=== PATIENT | male | born 1990 | race Caucasian/White ===

== ENCOUNTER 2016-07-11 08:29 | Emergency (ER) | payer BC, OTHER ==
[~2016-07-11] VITALS: Ht 172.7 cm; Wt 128.1 kg
[2016-07-11 08:32] VITALS: TEMP 36.6; Ht 172.7 cm; Wt 128.1 kg
[2016-07-11] MEDS ORDERED: LSN20 PO (08:56)
--- NOTE | 2016-07-11 08:56 | EMERGENCY ROOM VISIT NOTE ---
History Report prepared by Han: Jayesh Damian Under the Supervision of: Dr. Triston Hemphill M.D. First contact with patient: 08:37 Chief Complaint: BACK PAIN Stated Complaint: LWR BACK PAIN-PAIN GOING DOWN TO GROIN/THIGHS History of Present Illness The patient is a 26 year old male who presents to the Emergency Room with complaints of constant lower back pain since last night. The pain is severe, and radiates to his groin area and left leg. He denies numbness in the groin area. He has not taken anything for pain. The patient notes that he urine was cloudy yesterday. He denies any urinary or bowel incontinence. He has never had pain quite like this before. The patient was not doing any heavy lifting at onset. He denies any recent trauma or injury. He denies any history of kidney stones. Source of History: patient Onset: last night Position: back (lower) Symptom Intensity: severe Timing: constant Associated Symptoms: + urinary symptoms (cloudy), No numbness Review of Systems See HPI for pertinent positives & negatives. A total of 10 systems reviewed and were otherwise negative. Past Medical & Surgical Medical Problems: (1) HTN (hypertension) Family History Hypertension Social History Smoking Status: Never Smoker Alcohol Use: occasionally Marital Status: Housing Status: lives with family Current/Historical Medications Scheduled Lisinopril (Lisinopril), 20 MG PO DAILY Scheduled PRN Oxycodone/Acetaminophen 5MG/325MG (Percocet 5MG/325MG), 1-2 TAB PO Q4H PRN for Pain Allergies Coded Allergies: [place]ut (Verified Allergy, Unknown, swelling, gi mdisturbance, 07/11/16) NO KNOWN DRUG ALLERGIES (Verified Allergy, Unknown, nonoe, 07/11/16) [place] (Verified Allergy, Unknown, swelling, gi disturbance, 07/11/16) Uncoded Allergies: MAYONNIASE (Allergy, Unknown, swelling,gi disturbance, 08/23/14) Physical Exam Vital Signs Date Time Temp Pulse Resp B/P Pulse Ox O2 Delivery O2 Flow Rate FiO2 07/11/16 10:44 61 18 141/68 94 07/11/16 10:01 64 18 141/68 95 Room Air 07/11/16 09:55 63 07/11/16 09:17 67 18 115/62 94 Room Air 07/11/16 08:32 36.6 80 20 199/111 95 Room Air Physical Exam GENERAL: Patient is a healthy-appearing well-nourished HEAD: Normocephalic atraumatic EYES: Ocular movements intact pupils equal and react to light OROPHARYNX mucous membranes are moist no exudates present no erythema or edema present NECK: Supple no nuchal rigidity CHEST: Good equal expansion LUNGS: Clear and equal to auscultation CARDIAC: Normal S1 and S2 ABDOMEN: Soft nontender no guarding BACK: No CVA tenderness EXTREMITIES: No pain upon palpation normal muscle strength in all groups no clubbing cyanosis or edema NEURO: Patient is following commands is answering questions appropriately. Alert and oriented x3 Cranial Nerves 2-12 grossly intact. Able to walk on heels and tip-toes, no saddle anesthesia, no loss of bowel or bladder control. Medical Decision & Procedures ER Provider Diagnostic Interpretation: CT results as stated below per my review and radiologist interpretation: ABDOMEN AND PELVIS CT WITHOUT CONTRAST CT DOSE: 1154.27 mGycm HISTORY: Flank pain Pt c/o left sided flank pain TECHNIQUE: Multiaxial CT images of the abdomen and pelvis were performed without the use of intravenous and oral contrast according to the standard department stone protocol. COMPARISON STUDY: None. FINDINGS: Lung bases are clear. Liver spleen and pancreas are unremarkable. Kidneys are negative for calcification or hydronephrosis. Bowel pattern is considered nonobstructive. An exit normal. Bladder is midline. IMPRESSION: No renal stones or hydronephrosis. Negative study of the abdomen and pelvis Electronically signed by: Samy Farris M.D. 07/11/2016 9:40 AM Dictated Date/Time: 07/11/2016 9:36 AM Laboratory Results 07/11/16 09:08 Red Blood Count 5.13, Mean Corpuscular Volume 82.5, Mean Corpuscular Hemoglobin 27.9, Mean Corpuscular Hemoglobin Concent 33.8, Mean Platelet Volume 9.2, Neutrophils (%) (Auto) 58.4, Lymphocytes (%) (Auto) 27.7, Monocytes (%) (Auto) 10.8, Eosinophils (%) (Auto) 2.7, Basophils (%) (Auto) 0.1, Neutrophils # (Auto ) 4.55, Lymphocytes # (Auto) 2.16, Monocytes # (Auto) 0.84, Eosinophils # (Auto ) 0.21, Basophils # (Auto) 0.01 07/11/16 09:08 Test 07/11/16 09:08 White Blood Count 7.79 K/uL (4.8-10.8) Red Blood Count 5.13 M/uL (4.7-6.1) Hemoglobin 14.3 g/dL (14.0-18.0) Hematocrit 42.3 % (42-52) Mean Corpuscular Volume 82.5 fL (80-100) Mean Corpuscular Hemoglobin 27.9 pg (25-34) Mean Corpuscular Hemoglobin Concent 33.8 g/dl (32-36) Platelet Count 236 K/uL (130-400) Mean Platelet Volume 9.2 fL (7.4-10.4) Neutrophils (%) (Auto) 58.4 % Lymphocytes (%) (Auto) 27.7 % Monocytes (%) (Auto) 10.8 % Eosinophils (%) (Auto) 2.7 % Basophils (%) (Auto) 0.1 % Neutrophils # (Auto) 4.55 K/uL (1.4-6.5) Lymphocytes # (Auto) 2.16 K/uL (1.2-3.4) Monocytes # (Auto) 0.84 K/uL (0.11-0.59) Eosinophils # (Auto) 0.21 K/uL (0-0.5) Basophils # (Auto) 0.01 K/uL (0-0.2) RDW Standard Deviation 38.7 fL (36.4-46.3) RDW Coefficient of Variation 12.8 % (11.5-14.5) Immature Granulocyte % (Auto) 0.3 % Immature Granulocyte # (Auto) 0.02 K/uL (0.00-0.02) Urine Color YELLOW Urine Appearance CLEAR (CLEAR) Urine pH 7.5 (4.5-7.5) Urine Specific [place] 1.007 (1.000-1.030) Urine Protein NEG (NEG) Urine Glucose (UA) NEG (NEG) Urine Ketones NEG (NEG) Urine Occult Blood NEG (NEG) Urine Nitrite NEG (NEG) Urine Bilirubin NEG (NEG) Urine Urobilinogen NEG (NEG) Urine Leukocyte Esterase NEG (NEG) Anion Gap 4.0 mmol/L (3-11) Est Creatinine Clear Calc Drug Dose 120.7 ml/min Estimated GFR () 95.5 Estimated GFR (Non- 82.4 BUN/Creatinine Ratio 11.8 (10-20) Calcium Level 9.0 mg/dl (8.5-10.1) Total Bilirubin 0.3 mg/dl (0.2-1) Direct Bilirubin < 0.1 mg/dl (0-0.2) Aspartate Amino Transf (AST/SGOT) 15 U/L (15-37) Alanine Aminotransferase (ALT/SGPT) 29 U/L (12-78) Alkaline Phosphatase 105 U/L (45-117) Total Protein 7.8 gm/dl (6.4-8.2) Albumin 3.9 gm/dl (3.4-5.0) Lipase 123 U/L (73-393) Labs reviewed by ED physician. Medications Administered Medications (Trade) Dose Ordered Sig/Epifanio Route Start Time Stop Time Status Last Admin Dose Admin Sodium Chloride (Nss 1000ml) 1,000 ml @ 999 mls/hr Q1H1M STAT IV 07/11/16 08:58 07/11/16 09:58 DC 07/11/16 09:12 999 MLS/HR Ketorolac Tromethamine (Toradol Inj) 30 mg NOW STAT IV 07/11/16 08:58 07/11/16 09:00 DC 07/11/16 09:12 30 MG Hydromorphone HCl (Dilaudid Inj) 1 mg NOW STAT IV 07/11/16 08:58 07/11/16 09:00 DC 07/11/16 09:13 1 MG Ondansetron HCl (Zofran Inj) 4 mg NOW STAT IV 07/11/16 08:58 07/11/16 09:00 DC 07/11/16 09:12 4 MG ED Course 0850: Past medical records reviewed. The patient was evaluated in room B9. A complete history and physical examination was performed. 0858: Zofran 4 mg IV, Dilaudid 1 mg IV, Toradol 30 mg IV, NSS 1000 ml @ 999 mls/ hr. 1030: Reassessed the patient. Discussed the findings with him. He verbalized understanding and agreement of the plan. The patient is ready for discharge. Medical Decision Differential diagnosis: Etiologies such as musculoskeletal, disc herniation, fracture, aortic disease, metastatic disease, cord compression, discitis, infection, renal colic, gastrointestinal, acute exacerbation of chronic back pain, sciatica, cauda equina, as well as others were entertained. This is a 26-year-old male who presents emergency department complaining of low back pain that radiates into his groin area and based on the patient's complaint of concerned about a kidney stone however the patient does not have an elevation in his white blood count has a normal renal profile has a normal liver profile has a normal lipase. In addition the patient does not appear to have any blood in his urine. CAT scan of the abdomen pelvis does not show any evidence of stone. An IV was established, the patient given normal saline bolus , Toradol, Dilaudid. Repeat examination revealed improvement patient's symptoms. I do believe that the patient as well as to be discharged home for follow-up with her primary care physician. Patient was in agreement with the treatment plan. Impression Primary Impression: Low back pain Scribe Attestation The scribe's documentation has been prepared under my direction and personally reviewed by me in its entirety. I confirm that the note above accurately reflects all work, treatment, procedures, and medical decision making performed by me. Departure Information Dispostion Home / Self-Care Prescriptions Oxycodone/Acetaminophen 5MG/325MG (PERCOCET 5MG/325MG) Tab 1-2 TAB PO Q4H Y for Pain, #14 TAB Prov: Trsiton Hemphill MD 07/11/16 Referrals Neftaly Flores M.D. (PCP) Forms HOME CARE DOCUMENTATION FORM, IMPORTANT VISIT INFORMATION, School Instructions, Work Instructions Patient Instructions Back Pain - [facility], ED Back Care Tips, Exercises Lower Back Rotation, Leg Low Back Pain Poss Causes, Low Back Pain Self Care, [facility] Additional Instructions Follow up with Dr Yang's office You received narcotic or benzodiazepene medication while in the emergency room today. Do not drive, operate heavy machinery, or drink alcohol under the influence of this medication. Take 600 mg Ibuprofen every 6 hours Take Percocet for breakthrough pain You have been examined and treated today on an emergency basis only. This is not a substitute for, or an effort to provide, complete comprehensive medical care. It is impossible to recognize and treat all injuries or illnesses in a single emergency department visit. It is therefore important that you follow up closely with your PCP. Call as soon as possible for an appointment. Thank you for your time and consideration. I look forward to speaking with you again soon. Please don't hesitate to call us if you have any questions. Problem Qualifiers Primary Impression: Low back pain Chronicity: acute Back pain laterality: left Sciatica presence: without sciatica Qualified Codes: M54.5 - Low back pain
[2016-07-11] MEDS ORDERED: SODIUM CHLORIDE 0.9% 1000ML 1,000 ML IV STA (08:58)
[2016-07-11] MEDS ORDERED: HYDROmorphone INJ 1 MG/ML SYR IV STA (08:58)
[2016-07-11] MEDS ORDERED: ONDANSETRON INJ 2 MG/ML 2 ML VIAL IV STA (08:58)
[2016-07-11] MEDS ORDERED: KETOROLAC TROMETHAMINE 30 MG/ML VIAL IV STA (08:58)
[2016-07-11 09:20] LABS: BASO % 0.1 %; BASO ABS # 0.01 K/uL (0-0.2); COMPLETE YES; EOS % 2.7 %; HEMATOCRIT 42.3 % (42-52); IG% 0.3 %; LYMPH % 27.7 %; LYMPH ABS # 2.16 K/uL (1.2-3.4); MEAN CELL VOLUME 82.5 fL (80-100); MEAN CORPUSCULAR HEMOGLOBIN 27.9 pg (25-34); MEAN CORPUSCULAR HGB CONC 33.8 g/dl (32-36); MEAN PLATELET VOLUME 9.2 fL (7.4-10.4); MONO % 10.8 %; NEUT % 58.4 %; PLATELET COUNT 236 K/uL (130-400); RED BLOOD COUNT 5.13 M/uL (4.7-6.1); WHITE BLOOD COUNT 7.79 K/uL (4.8-10.8)
[2016-07-11 09:35] LABS: URINE APPEARANCE CLEAR (CLEAR); URINE BILIRUBIN NEG (NEG); URINE COLOR YELLOW; URINE NITRITE NEG (NEG); URINE PH 7.5 (4.5-7.5); URINE SPECIFIC GRAVITY 1.007 (1.000-1.030); UROBILINOGEN NEG (NEG)
--- NOTE | 2016-07-11 09:41 | DIAGNOSTIC IMAGING REPORT ---
ABDOMEN AND PELVIS CT WITHOUT CONTRAST CT DOSE: 1154.27 mGycm HISTORY: Flank pain Pt c/o left sided flank pain TECHNIQUE: Multiaxial CT images of the abdomen and pelvis were performed without the use of intravenous and oral contrast according to the standard department stone protocol. COMPARISON STUDY: None. FINDINGS: Lung bases are clear. Liver spleen and pancreas are unremarkable. Kidneys are negative for calcification or hydronephrosis. Bowel pattern is considered nonobstructive. An exit normal. Bladder is midline. IMPRESSION: No renal stones or hydronephrosis. Negative study of the abdomen and pelvis Electronically signed by: Samy Farris M.D. 07/11/2016 9:40 AM Dictated Date/Time: 07/11/2016 9:36 AM
[2016-07-11 09:42] LABS: ALT/SGPT 29 U/L (12-78); AST/SGOT 15 U/L (15-37); BLOOD UREA NITROGEN 14 mg/dl (7-18); BUN/CREATININE RATIO 11.8 (10-20); CARBON DIOXIDE 29 mmol/L (21-32); CHLORIDE 106 mmol/L (98-107); GLUCOSE 88 mg/dl (70-99); POTASSIUM 4.1 mmol/L (3.5-5.1); SODIUM 139 mmol/L (136-145)
[2016-07-11 09:44] LABS: ALKALINE PHOSPHATASE 105 U/L (45-117)
[2016-07-11 09:50] LABS: MANUAL MICROSCOPIC REQUIRED? NO; REVIEW REQ? NO
[2016-07-11] MEDS ORDERED: OXYC-57 PO (10:27)
[2016-07-11 10:44] VITALS: BP 141/68; PULSE 61; O2SAT 94
== END 2016-07-11 10:46 | disposition home or self-care (01) ==
LOC: C.EDB 08:31
DX: M54.5 Low back pain (principal); I10 Essential (primary) hypertension; Z91.018 Allergy to other foods; Z82.49 Family history of ischemic heart disease and other diseases of the circulatory system